=== PATIENT | female | born 1955 | race Caucasian/White ===

== ENCOUNTER → 2016-07-31 | Outpatient (CLI) | payer BC ==
[2016-07-31 09:01] LABS: CHLORIDE,CL 107 mmol/L (98-110); SODIUM,NA 139 mmol/L (136-146)
== END ==
LOC: MW.CHFP 08:22
PROVIDERS: ATTEND Nurse Practitioner Family
DX: Z01.818 Encounter for other preprocedural examination (principal); E78.00 Pure hypercholesterolemia, unspecified
CPT/HCPCS: 36415; 80053; 80061; 82652; 85025

== ENCOUNTER → 2016-08-06 | Outpatient (CLI) | payer BC ==
--- NOTE | 2016-08-06 12:46 | CR ---
EXAMINATION: Two-view chest (PA and Lateral views). HISTORY: Preprocedural examination. FINDINGS: The trachea is midline. The cardiomediastinal silhouette is within normal limits. No pulmonary infil trates, effusions or pneumothorax. Osseous structures appear unremarkable. IMPRESSION: No acute cardiopulmonary process.
== END ==
LOC: MW.CHFP 11:25
PROVIDERS: ATTEND Nurse Practitioner Family
DX: Z01.818 Encounter for other preprocedural examination (principal)
CPT/HCPCS: 71020; 71020-26; 81001

== ENCOUNTER 2017-01-11 10:35 | Day surgery (SDC) | payer BC ==
[~2017-01-11 10:35] MED LIST: Lidocaine 2% 5 ML SDV ONE; Propofol 200 MG/20 ML SDV ONE
--- NOTE | 2017-01-11 11:05 | PCM.PREANE ---
Preanesthetic Assessment - Anesthesia/Transfusion/Family Hx Anesthesia History: Prior Anesthesia Without Reaction Family History of Anesthesia Reaction: No Transfusion History: No Prior Transfusion(s) - Review of Systems General: No Symptoms Pulmonary: No Symptoms Cardiovascular: No Symptoms Gastrointestinal: No Symptoms Other: Reports: None - Physical Assessment NPO Status Date: 01/10/17 O2 Sat by Pulse Oximetry: 97 Respiratory Rate: 16 Vital Signs: Last Vital Signs Temp 35.8 C 01/11/17 10:41 Pulse 71 01/11/17 10:41 Resp 16 01/11/17 10:41 BP 113/68 01/11/17 10:41 Pulse Ox 97 01/11/17 10:41 Height: 1.73 m Weight: 112.491 kg ASA Class: 2 Mental Status: Alert & Oriented x3 Airway Class: Mallampati = 2 Dentition: Reports: Normal Dentition ROM/Head Extension: Full Lungs: Clear to Auscultation, Normal Respiratory Effort Cardiovascular: Regular Rate, Regular Rhythm - Allergies Allergies/Adverse Reactions: Allergies Allergy/AdvReac Type Severity Reaction Status Date / Time No Known Allergies Allergy Verified 10/30/13 08:23 - Anesthesia Plan Pre-Op Medication Ordered: Other (fentanyl) - Acknowledgements Anesthesia Type Planned: MAC Pt an Appropriate Candidate for the Planned Anesthesia: Yes Alternatives and Risks of Anesthesia Discussed w Pt/Guardian: Yes Pt/Guardian Understands and Agrees with Anesthesia Plan: Yes PreAnesthesia Questionnaire HEENT History: Reports: Other (See Below) Other HEENT History: wears glasses Cardiovascular History: Reports: High Cholesterol, Hypertension Respiratory History: Reports: Sleep Apnea Other Respiratory History: uses CPAP Gastrointestinal History: Reports: Other (See Below) Other Gastrointestinal History: currently c/o diarrhea and rectal bleeding Genitourinary History: Other Genitourinary History: pt denies, H&P states chronic renal disease, stage 3 [employer] History: Reports: Neurological History: Reports: Other (See Below) Other Neuro History: "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" Endocrine/Metabolic History: Reports: Hypothyroidism, Obesity/BMI 30+ Hematologic History: Reports: Anemia - Past Surgical History Head Surgeries/Procedures: Reports: None Female Surgical History: Reports: Section, Hysterectomy Neurological Surgical History: Reports: Spinal Fusion Other Neurological Surgeries/Procedures: hx back fusion Musculoskeletal Surgical History: Reports: Hip Replacement Other Musculoskeletal Surgeries/Procedures:: hx left hip replacement - SUBSTANCE USE Smoking Status *Q: Never Smoker Recreational Drug Use History: No - HOME MEDS Home Medications: Home Meds Ezetimibe 10 mg PO BEDTIME 01/08/17 [History] Hydrocodone/Acetaminophen [Hydrocodon-Acetaminophen 5-325] 0.5 tab PO ASDIRECTED PRN 01/08/17 [History] Iron Polysaccharide Complex [Poly-Iron] 150 mg PO BID 01/08/17 [History] Levothyroxine Sodium [Synthroid] 112 mcg PO DAILY 01/08/17 [History] Lisinopril/Hydrochlorothiazide [Lisinopril-Hctz 10-12.5 mg Tab] 1 tab PO DAILY 01/08/17 [History] Meloxicam 15 mg PO DAILY PRN 01/08/17 [History] Vit C/Silvia Ac/Lut/Copper/ZnOx [Preservision Lutein Softgel] 1 tab PO DAILY 01/08 [History] - CURRENT (IN HOUSE) MEDS Current Meds: Current Medications Discontinued Medications Lidocaine (Xylocaine-Mpf 2%) Confirm Administered Dose 5 ml .ROUTE .STK-MED ONE Stop: 01/11/17 07:36 Propofol (Diprivan 20 Ml) Confirm Administered Dose 400 mg .ROUTE .STK-MED ONE Stop: 01/11/17 07:36
[2017-01-11] MEDS: fentaNYL 100 MCG/2 ML SDV IVPUSH PRN ×2 (11:12→11:19)
[2017-01-11] MEDS ORDERED: Propofol 200 MG/20 ML SDV ONE ×3 (11:55→12:27)
--- NOTE | 2017-01-11 12:56 | PCM.OPNOTE ---
- General Post-Op/Procedure Note Date of Surgery/Procedure: 01/11/17 Operative Procedure(s): Esophagogastroduodenoscopy with biopsy. Colonoscopy. Pre Op Diagnosis: Anemia. Change in bowel habits. Rectal bleeding. Post-Op Diagnosis: Gastritis. Pancolonic diverticulosis. Anesthesia Technique: MAC (ASA III) Primary Surgeon: Sarthak Carpenter Condition: Good Free Text/Narrative:: Dictation [id number] CPT CODE [id number]
[2017-01-11] MEDS ORDERED: Lactated Ringers 1,000 ML IV SCH (13:00)
[2017-01-11] MEDS ORDERED: HYDROmorphone 1 MG/ML Syringe IVPUSH ONE (13:02)
[2017-01-11] MEDS ORDERED: HYDROmorphone 2 MG/ML Syringe ONE (13:02)
[2017-01-11] MEDS ORDERED: Acetaminophen/oxyCODONE 325-10 MG Tab PO ONE (13:10)
[2017-01-11] MEDS ORDERED: Acetaminophen/oxyCODONE 325-10 MG Tab ONE (13:12)
--- NOTE | 2017-01-11 13:16 | PCM.POSTAN ---
POST ANESTHESIA ASSESSMENT - MENTAL STATUS Mental Status: Alert, Oriented - RESPIRATORY Respiratory Status: Respiratory Rate WNL, Airway Patent, O2 Saturation Stable - CARDIOVASCULAR CV Status: Pulse Rate WNL, Blood Pressure Stable - GASTROINTESTINAL GI Status: No Symptoms - PAIN Pain Score: 10 Free Text/Narrative:: Patient pulled out IV PO dilaudid given, Hx of chronic pain syndrome - POST OP HYDRATION Hydration Status: Adequate & Stable
[2017-01-11] MEDS ORDERED: Morphine 10 MG/ML Syringe IVPUSH PRN (15:31)
[2017-01-11] MEDS ORDERED: Morphine 2 MG/ML Syringe IVPUSH PRN (15:37)
[2017-01-11 16:07] VITALS: BP 115/62
--- NOTE | 2017-01-11 16:28 | PCM48HPAN ---
Post Anesthesia Note - EVALUATION WITHIN 48HRS OF ANESTHETIC Vital Signs in Normal Range: Yes Patient Participated in Evaluation: Yes Respiratory Function Stable: Yes Airway Patent: Yes Cardiovascular Function Stable: Yes Hydration Status Stable: Yes Pain Control Satisfactory: Yes Nausea and Vomiting Control Satisfactory: Yes Mental Status Recovered: Yes - COMMENTS/OBSERVATIONS Free Text/Narrative:: Pt had significant gas/abdominal cramping post op that made her unable to ambulate even short distances. Pt had flatus but not adequate to relieve the cramping. Pt was eventually treated with IV morphine, which brought her pain level to a "2/10" and she was agreeable to discharge. No other anesthetic complications reported.
--- NOTE | 2017-01-11 19:04 | OR ---
SURGEON: Sarthak Carpenter M.D. DATE OF PROCEDURE: 01/11/2017 OPERATION PERFORMED: Esophagogastroduodenoscopy with biopsy. ANESTHESIA: MAC. ASA CLASSIFICATION: III. PREOPERATIVE DIAGNOSIS: New onset anemia. POSTOPERATIVE DIAGNOSIS: Moderate gastritis. DESCRIPTION OF PROCEDURE: The patient was taken to the endoscopy room and positioned on the endoscopy table in the supine position. Time-out was called for appropriate identification of the patient and procedure. Monitored anesthesia care was provided. The bite-block was placed between the patient's teeth. The gastroscope was inserted through the bite-block, advanced without difficulty through the esophagus and stomach into the duodenum where examination was carried out in a retrograde fashion. Duodenum was somewhat pale in appearance, but shows no acute ulcerations. Stomach shows a [id number] gastritis. Antral biopsies were obtained to look for the presence of Helicobacter pylori. The gastroscope was retroflexed to visualize the proximal stomach. No lesions were identified. Specifically, no ulcers or tumors were seen. The gastroscope was then straightened and slowly withdrawn aspirating the stomach as the scope was withdrawn. The GE junction was well defined and shows no acute inflammatory changes. The esophagus demonstrated good contractility. No mid or proximal lesions were identified. The vocal cords were visualized as the scope was withdrawn and noted to move symmetrically. The gastroscope was then removed with the patient having tolerated this portion of the procedure well. Following colonoscopy she was taken to recovery room in stable condition. MANUEL BROOKS /[id number]
--- NOTE | 2017-01-11 19:13 | OR ---
SURGEON: Sarthak Carpenter M.D. DATE OF PROCEDURE: 01/11/2017 OPERATION PERFORMED: Colonoscopy. ANESTHESIA: MAC. ASA CLASSIFICATION: III. PREOPERATIVE DIAGNOSES: 1. Change in bowel habits. 2. New onset anemia. POSTOPERATIVE DIAGNOSIS: Pancolonic diverticulosis. DESCRIPTION OF PROCEDURE: With the patient having completed esophagogastroduodenoscopy with biopsy, she was now positioned in the left lateral decubitus position. The colonoscope was inserted into the rectum and advanced with great difficulty to the proximal ascending colon visualizing the cecum in the distance. The prep was of poor quality and certainly a small polyp could be missed. As much fecal material could be was aspirated. The patient has pancolonic diverticulosis. The cecum, ascending colon, hepatic flexure, transverse colon, splenic flexure, descending colon, sigmoid colon, and rectum were visualized as well as could be under given the poor quality of the prep. The patient does have diverticular changes scattered throughout the entire length of the colon. I did not see any large polyp or any obstructing neoplasm. Certainly a small polyp could be missed given the quality of the prep. As the colonoscope was withdrawn to the rectum, it was retroflexed to visualize the anal orifice from above. No tumors or polyps were seen and there were no acute hemorrhoidal changes. The colonoscope was then straightened, the rectum aspirated, and the colonoscope removed. The patient tolerated the procedure well and was taken to recovery room in stable condition. MANUEL BROOKS /[id number]
== END 2017-01-11 16:56 | disposition home or self-care (01) ==
LOC: MW.SDS 10:35
PROVIDERS: ATTEND Surgery
DX: K29.50 Unspecified chronic gastritis without bleeding (principal); K57.30 Diverticulosis of large intestine without perforation or abscess without bleeding; D64.9 Anemia, unspecified; I12.9 Hypertensive chronic kidney disease with stage 1 through stage 4 chronic kidney disease, or unspecified chronic kidney disease; N18.3 Chronic kidney disease, stage 3 (moderate); E78.00 Pure hypercholesterolemia, unspecified; E03.9 Hypothyroidism, unspecified; M54.16 Radiculopathy, lumbar region; E66.9 Obesity, unspecified; G47.33 Obstructive sleep apnea (adult) (pediatric); E55.9 Vitamin D deficiency, unspecified; M43.10 Spondylolisthesis, site unspecified; E88.81 Metabolic syndrome and other insulin resistance; Z99.89 Dependence on other enabling machines and devices; Z79.899 Other long term (current) drug therapy; Z98.1 Arthrodesis status; Z96.642 Presence of left artificial hip joint; Z90.710 Acquired absence of both cervix and uterus; Z98.890 Other specified postprocedural states; Z80.0 Family history of malignant neoplasm of digestive organs; Z68.37 Body mass index [BMI] 37.0-37.9, adult
CPT/HCPCS: 43239; 45378; 88305; 88312; A9270; J2270; J3010; 00740; J2704

== ENCOUNTER 2020-05-14 02:47 | Observation (INO) | payer MEDICARE, OTHER ==
[2020-05-14] MEDS ORDERED: Sodium Chloride 0.9% 1,000 ML IV ONE (03:16)
[2020-05-14] MEDS ORDERED: Diltiazem 25 MG/5 ML SDV IVPUSH ONE ×3 (03:17→03:36)
--- NOTE | 2020-05-14 03:21 | EDM.PDOC ---
ED HPI GENERAL MEDICAL PROBLEM - General Chief Complaint: Cardiovascular Problem Stated Complaint: HIGH BLOOD PRESSURE Time Seen by Provider: 05/14/20 03:04 Source of Information: Reports: Patient History Limitations: Reports: No Limitations - History of Present Illness INITIAL COMMENTS - FREE TEXT/NARRATIVE: Patient is a 64-year-old female who presents today for elevated blood pressure and heart rate. Patient states that this evening she is felt funny and he checked her vital signs at home her blood pressure was 160/90 but she notes her heart rate was close to 187 to come in. Patient denies any chest pain palpitation fever chills nausea vomiting or other complaints. Patient does have concerns that she is got the cold vaccine and believes this is causing her heart rate to go fast. Has no rash or any allergic reaction symptoms. - Related Data Allergies Allergy/AdvReac Type Severity Reaction Status Date / Time No Known Allergies Allergy Verified 10/30/13 08:23 Home Meds: Home Meds Ezetimibe 10 mg PO BEDTIME 01/08/17 [History] Levothyroxine Sodium [Synthroid] 112 mcg PO DAILY 01/08/17 [History] Lisinopril/Hydrochlorothiazide [Lisinopril-Hctz 10-12.5 mg Tab] 1 tab PO DAILY 01/08/17 [History] Past Medical History HEENT History: Reports: Other (See Below) Other HEENT History: wears glasses Cardiovascular History: Reports: High Cholesterol, Hypertension Respiratory History: Reports: Sleep Apnea Other Respiratory History: uses CPAP Gastrointestinal History: Reports: Other (See Below) Other Gastrointestinal History: currently c/o diarrhea and rectal bleeding Genitourinary History: Other Genitourinary History: pt denies, H&P states chronic renal disease, stage 3 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" Endocrine/Metabolic History: Reports: Hypothyroidism, Obesity/BMI 30+ Hematologic History: Reports: Anemia - Past Surgical History Head Surgeries/Procedures: Reports: None Female Surgical History: Reports: Section, Hysterectomy Neurological Surgical History: Reports: Spinal Fusion Other Neurological Surgeries/Procedures: hx back fusion Musculoskeletal Surgical History: Reports: Hip Replacement Other Musculoskeletal Surgeries/Procedures:: hx left hip replacement ED ROS GENERAL - Review of Systems Review Of Systems: See Below Constitutional: Reports: No Symptoms HEENT: Reports: No Symptoms Respiratory: Reports: No Symptoms Cardiovascular: Reports: No Symptoms Endocrine: Reports: No Symptoms GI/Abdominal: Reports: No Symptoms : Reports: No Symptoms Musculoskeletal: Reports: No Symptoms Skin: Reports: No Symptoms Neurological: Reports: No Symptoms Psychiatric: Reports: No Symptoms Hematologic/Lymphatic: Reports: No Symptoms Immunologic: Reports: No Symptoms ED EXAM, GENERAL - Physical Exam Exam: See Below Exam Limited By: No Limitations General Appearance: Alert, WD/WN, No Apparent Distress Eye Exam: Bilateral Eye: EOMI, PERRL Head: Atraumatic Respiratory/Chest: No Respiratory Distress, Lungs Clear, Normal Breath Sounds Cardiovascular: Normal Peripheral Pulses, Regular Rate, Rhythm, No Edema GI/Abdominal: Normal Bowel Sounds, Soft, Non-Tender Extremities: Normal Inspection Neurological: Alert, Oriented, Normal Cognition, Normal Gait #1 Interpretation EKG Date: 05/14/20 Time: 03:10 Rhythm: A-Fib Rate (Beats/Min): 154 ST-T: Normal #2 Interpretation EKG Date: 05/14/20 Time: 05:00 Rhythm: NSR Rate (Beats/Min): 74 ST-T: Normal Course - Vital Signs Last Recorded V/S: Last Vital Signs Temp 97.4 F 05/14/20 03:04 Pulse 70 05/14/20 04:32 Resp 18 05/14/20 04:32 BP 118/76 05/14/20 04:32 Pulse Ox 97 05/14/20 04:32 - Orders/Labs/Meds Orders: Active Orders 24 hr Category Date Time Status EKG Documentation Completion [RC] STAT Care 05/14/20 05:11 Active TROPONIN I [CHEM] Stat Lab 05/14/20 06:10 Ordered Labs: Laboratory Tests 05/14/20 05/14/20 05/14/20 Range/Units 03:10 03:10 03:10 WBC 6.38 (4.0-11.0) K/uL RBC 4.50 (4.30-5.90) M/uL Hgb 13.8 (12.0-16.0) g/dL Hct 42.5 (36.0-46.0) % MCV 94.4 (80.0-98.0) fL MCH 30.7 (27.0-32.0) pg MCHC 32.5 (31.0-37.0) g/dL RDW Std Deviation 60.8 (28.0-62.0) fl RDW Coeff of Derrick 18 H (11.0-15.0) % Plt Count 230 (150-400) K/uL MPV 9.70 (7.40-12.00) fL Neut % (Auto) 36.7 L (48.0-80.0) % Lymph % (Auto) 45.5 H (16.0-40.0) % [place] % (Auto) 11.9 (0.0-15.0) % Eos % (Auto) 5.6 (0.0-7.0) % Baso % (Auto) 0.3 (0.0-1.5) % Neut # (Auto) 2.3 (1.4-5.7) K/uL Lymph # (Auto) 2.9 H (0.6-2.4) K/uL [place] # (Auto) 0.8 (0.0-0.8) K/uL Eos # (Auto) 0.4 (0.0-0.7) K/uL Baso # (Auto) 0.0 (0.0-0.1) K/uL Nucleated RBC % 0.0 /100WBC Nucleated RBCs # 0 K/uL Sodium 141 (136-145) mmol/L Potassium 3.8 (3.5-5.1) mmol/L Chloride 105 (98-107) mmol/L Carbon Dioxide 25.8 (21.0-32.0) mmol/L BUN 30 H (7.0-18.0) mg/dL Creatinine 1.2 H (0.6-1.0) mg/dL Est Cr Clr Drug Dosing 46.52 mL/min Estimated GFR (MDRD) 44.9 ml/min Glucose 137 H (74-106) mg/dL Calcium 8.3 L (8.5-10.1) mg/dL Creatine Kinase 78 (26-308) U/L Troponin I < 0.050 (0.000-0.056) ng/mL B-Natriuretic Peptide 56 (<100) PG/ML TSH 3rd Generation 3.59 (0.36-3.74) uIU/mL Influenza Type A RNA (NEGATIVE) Influenza Type B RNA (NEGATIVE) SARS-CoV-2 RNA (SUSAN) (NEGATIVE) 05/14/20 Range/Units 03:55 WBC (4.0-11.0) K/uL RBC (4.30-5.90) M/uL Hgb (12.0-16.0) g/dL Hct (36.0-46.0) % MCV (80.0-98.0) fL MCH (27.0-32.0) pg MCHC (31.0-37.0) g/dL RDW Std Deviation (28.0-62.0) fl RDW Coeff of Derrick (11.0-15.0) % Plt Count (150-400) K/uL MPV (7.40-12.00) fL Neut % (Auto) (48.0-80.0) % Lymph % (Auto) (16.0-40.0) % [place] % (Auto) (0.0-15.0) % Eos % (Auto) (0.0-7.0) % Baso % (Auto) (0.0-1.5) % Neut # (Auto) (1.4-5.7) K/uL Lymph # (Auto) (0.6-2.4) K/uL [place] # (Auto) (0.0-0.8) K/uL Eos # (Auto) (0.0-0.7) K/uL Baso # (Auto) (0.0-0.1) K/uL Nucleated RBC % /100WBC Nucleated RBCs # K/uL Sodium (136-145) mmol/L Potassium (3.5-5.1) mmol/L Chloride (98-107) mmol/L Carbon Dioxide (21.0-32.0) mmol/L BUN (7.0-18.0) mg/dL Creatinine (0.6-1.0) mg/dL Est Cr Clr Drug Dosing mL/min Estimated GFR (MDRD) ml/min Glucose (74-106) mg/dL Calcium (8.5-10.1) mg/dL Creatine Kinase (26-308) U/L Troponin I (0.000-0.056) ng/mL B-Natriuretic Peptide (<100) PG/ML TSH 3rd Generation (0.36-3.74) uIU/mL Influenza Type A RNA NEGATIVE (NEGATIVE) Influenza Type B RNA NEGATIVE (NEGATIVE) SARS-CoV-2 RNA (SUSAN) NEGATIVE (NEGATIVE) Meds: Medications Discontinued Medications Generic Name Dose Route Start Last Admin Trade Name Freq PRN Reason Stop Dose Admin Diltiazem HCl 20 mg 05/14/20 03:17 05/14/20 03:25 Diltiazem IVPUSH 05/14/20 03:18 20 mg ONETIME ONE Administration Diltiazem HCl 20 mg 05/14/20 03:36 05/14/20 03:57 Diltiazem IVPUSH 05/14/20 03:37 Not Given ONETIME ONE Diltiazem HCl 25 mg 05/14/20 03:36 05/14/20 03:57 Diltiazem IVPUSH 05/14/20 03:37 Not Given ONETIME ONE Diltiazem HCl 60 mg 05/14/20 03:37 05/14/20 04:10 Cardizem PO 05/14/20 03:38 60 mg ONETIME ONE Administration Sodium Chloride 1,000 mls @ 999 mls/hr 05/14/20 03:16 05/14/20 03:23 Normal Saline IV 05/14/20 04:16 999 mls/hr .BOLUS ONE Administration - Re-Assessments/Exams Free Text/Narrative Re-Assessment/Exam: 05/14/20 04:18 Patient heart rate is back in sinus rhythm after receiving 20 mg of IV diltiazem. Patient was was given p.o. diltiazem. Patient will be admitted to the hospital pending second troponin. Departure - Departure Time of Disposition: 04:18 Disposition: Admitted As Inpatient 64 Condition: Good Clinical Impression: A-fib Referrals: Christiano Bowden MD [Primary Care Provider] - Forms: ED Department Discharge Critical Care Note - Critical Care Note Total Time (mins): 40 Comments: Critical Care Procedure Note Authorized and Performed by: Dr. Sevilla Total critical care time: Approximately Due to a high probability of clinically significant, life threatening deterioration, the patient required my highest level of preparedness to intervene emergently and I personally spent this critical care time directly and personally managing the patient. This critical care time included obtaining a history; examining the patient; pulse oximetry; ordering and review of studies; arranging urgent treatment with development of a management plan; evaluation of patient's response to treatment; frequent reassessment; and, discussions with other providers. This critical care time was performed to assess and manage the high probability of imminent, life-threatening deterioration that could result in multi-organ failure. It was exclusive of separately billable procedures and treating other patients and teaching time. Sepsis Event Note (ED) - Evaluation Sepsis Screening Result: No Definite Risk - Focused Exam Vital Signs: Vital Signs Temp Pulse Resp BP Pulse Ox 05/14/20 04:32 70 18 118/76 97 05/14/20 03:58 98 18 149/116 H 100 05/14/20 03:26 140 H 18 147/102 H 92 L 05/14/20 03:04 97.4 F 145 H 18 147/102 H 99 - My Orders Last 24 Hours: My Active Orders 05/14/20 05:11 EKG Documentation Completion [RC] STAT 05/14/20 06:10 TROPONIN I [CHEM] Stat - Assessment/Plan Last 24 Hours: My Active Orders 05/14/20 05:11 EKG Documentation Completion [RC] STAT 05/14/20 06:10 TROPONIN I [CHEM] Stat Assessment:: Patient is a 64-year-old female who presents today for elevated blood pressure and heart rate. Patient was found to be in atrial fibrillation but is asymptomatic currently. X-ray labs EKG and give diltiazem.
[2020-05-14] MEDS ORDERED: Diltiazem IR 60 MG Tab PO ONE ×3 (03:37→19:00)
[2020-05-14 03:44] LABS: BLOOD UREA NITROGEN,BUN 30 mg/dL (7.0-18.0); CARBON DIOXIDE,CO2 25.8 mmol/L (21.0-32.0); CHLORIDE,CL 105 mmol/L (98-107); GLUCOSE RANDOM 137 mg/dL (74-106); POTASSIUM,K 3.8 mmol/L (3.5-5.1); SODIUM,NA 141 mmol/L (136-145)
--- NOTE | 2020-05-14 04:38 | CR ---
Indication: A-Fib Technique: Chest 1 view Comparison: None Findings/Impression: Cardiovascular and mediastinum: Unremarkable cardiac silhouette for a portable technique. An unfolded aorta. Lungs and pleural space: Lungs are clear. No sign of infiltrate or mass. No sign of pleural effusion. No pneumothorax. Bones and soft tissues: Degenerative changes at the glenohumeral joints. Dictated by Jesu Valderrama MD @ May 14 2020 4:32AM Signed by Dr. Jesu Valderrama @ May 14 2020 4:37AM
[2020-05-14 04:50] LABS: CORONAVIRUS COVID-19 NAA NEGATIVE (NEGATIVE); INFLUENZA A NAA NEGATIVE (NEGATIVE); INFLUENZA B NAA NEGATIVE (NEGATIVE)
[2020-05-14] MEDS ORDERED: Acetaminophen 325 MG Tab PO PRN (07:58)
[2020-05-14] MEDS ORDERED: Lactated Ringers 1,000 ML IV SCH (08:00)
[2020-05-14] MEDS ORDERED: Diltiazem 25 MG/5 ML SDV IVPUSH PRN (08:00)
[2020-05-14] MEDS ORDERED: Heparin Sodium 5,000 Units/ML Vial SUBCUT SCH (09:00)
--- NOTE | 2020-05-14 09:16 | PCM.HP.2 ---
<Nhi Juares - Last Filed: 05/14/20 13:44> H&P History of Present Illness - General Date of Service: 05/14/20 Admit Problem/Dx: Admission Diagnosis/Problem Admission Diagnosis/Problem Afib, Atrial fibrillation Source of Information: Patient History Limitations: Reports: No Limitations - History of Present Illness Initial Comments - Free Text/Narative: Patient is a 64-year-old female with a significant past medical history of hypothyroidism, hypertension and hypercholesterolemia; presenting to the ED on May 14, 2020 for 24 hours of chest discomfort/racing heart sensation with palpitations. Patient endorsed having her Covid shot on and feeling ill that night however overnight she was also experiencing some racing heart sensation and elevated blood pressure. BP at home was greater than 160 and patient endorsed her blood pressure normally runs in the 110s to 120s. Patient otherwise denied any overt chest pain, shortness of breath, headaches, diaphoresis. When she noticed that her heart rate is greater than 180 she presented to the ED via private vehicle. ED course: EKG: A. fib with RVR of 145 Diltiazem 20 mg x 3 given for rate control. Once rate controlled Dilts 60 p.o. provided. Sodium chloride 1 L IV fluid Troponin x1 - Chest x-ray unremarkable: Bedside: Patient endorses no acute distress at this time. Says the sensation in her chest has resolved. Endorses similar story as above. - Related Data Allergies/Adverse Reactions: Allergies Allergy/AdvReac Type Severity Reaction Status Date / Time No Known Allergies Allergy Verified 05/14/20 08:10 Home Medications: Home Meds Ezetimibe 10 mg PO BEDTIME 01/08/17 [History] Levothyroxine Sodium [Synthroid] 112 mcg PO BEDTIME 01/08/17 [History] Lisinopril/Hydrochlorothiazide [Lisinopril-Hctz 10-12.5 mg Tab] 1 tab PO BEDTIME 01/08/17 [History] Acetaminophen [Tylenol] 650 mg PO Q6H PRN tablet 05/14/20 [Rx] Diltiazem [Dilacor XR] 120 mg PO DAILY 30 Days #30 cap.er 05/14/20 [Rx] Warfarin [Coumadin] 7.5 mg PO DAILY 14 Days #14 tablet 05/14/20 [Rx] Past Medical History HEENT History: Reports: Other (See Below) Other HEENT History: wears glasses Cardiovascular History: Reports: High Cholesterol, Hypertension Respiratory History: Reports: Sleep Apnea Other Respiratory History: uses CPAP Gastrointestinal History: Reports: Other (See Below) Other Gastrointestinal History: currently c/o diarrhea and rectal bleeding Genitourinary History: Other Genitourinary History: pt denies, H&P states chronic renal disease, stage 3 [employer] History: Reports: Musculoskeletal History: Reports: Arthritis Neurological History: Reports: Other (See Below) Other Neuro History: "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" Endocrine/Metabolic History: Reports: Hypothyroidism, Obesity/BMI 30+ Hematologic History: Reports: Anemia - Infectious Disease History Infectious Disease History: Reports: Chicken Pox, Measles, Mumps - Past Surgical History Head Surgeries/Procedures: Reports: None Female Surgical History: Reports: Section, Hysterectomy Neurological Surgical History: Reports: Spinal Fusion Other Neurological Surgeries/Procedures: hx back fusion Musculoskeletal Surgical History: Reports: Hip Replacement, Knee Replacement Other Musculoskeletal Surgeries/Procedures:: hx left hip replacement, left knee, both hips Social & Family History - Tobacco Use Tobacco Use Status *Q: Never Tobacco User Second Hand Smoke Exposure: No - Caffeine Use Caffeine Use: Reports: Coffee, Tea - Recreational Drug Use Recreational Drug Use: No H&P Review of Systems - Review of Systems: Review Of Systems: See Below General: Reports: No Symptoms HEENT: Reports: No Symptoms Pulmonary: Reports: No Symptoms Cardiovascular: Reports: No Symptoms Gastrointestinal: Reports: No Symptoms Genitourinary: Reports: No Symptoms Musculoskeletal: Reports: No Symptoms Psychiatric: Reports: No Symptoms Neurological: Reports: No Symptoms Exam - Exam Exam: See Below - Vital Signs Vital Signs: Last Vital Signs Temp 96.5 F L 05/14/20 07:56 Pulse 65 05/14/20 07:56 Resp 14 05/14/20 07:56 BP 122/78 05/14/20 07:56 Pulse Ox 99 05/14/20 07:56 Weight: 118.614 kg - Exam Quality Assessment: No: Supplemental Oxygen General: Alert, Oriented, Cooperative HEENT: EOMI, Hearing Intact Neck: Supple, Trachea Midline Lungs: Clear to Auscultation, Normal Respiratory Effort Cardiovascular: Regular Rate, Regular Rhythm GI/Abdominal Exam: Soft, Non-Tender - Patient Data Lab Results Last 24 hrs: Laboratory Results - last 24 hr 05/14/20 05/14/20 05/14/20 Range/Units 03:10 03:10 03:10 WBC 6.38 (4.0-11.0) K/uL RBC 4.50 (4.30-5.90) M/uL Hgb 13.8 (12.0-16.0) g/dL Hct 42.5 (36.0-46.0) % MCV 94.4 (80.0-98.0) fL MCH 30.7 (27.0-32.0) pg MCHC 32.5 (31.0-37.0) g/dL RDW Std Deviation 60.8 (28.0-62.0) fl RDW Coeff of Derrick 18 H (11.0-15.0) % Plt Count 230 (150-400) K/uL MPV 9.70 (7.40-12.00) fL Neut % (Auto) 36.7 L (48.0-80.0) % Lymph % (Auto) 45.5 H (16.0-40.0) % Desha % (Auto) 11.9 (0.0-15.0) % Eos % (Auto) 5.6 (0.0-7.0) % Baso % (Auto) 0.3 (0.0-1.5) % Neut # (Auto) 2.3 (1.4-5.7) K/uL Lymph # (Auto) 2.9 H (0.6-2.4) K/uL Desha # (Auto) 0.8 (0.0-0.8) K/uL Eos # (Auto) 0.4 (0.0-0.7) K/uL Baso # (Auto) 0.0 (0.0-0.1) K/uL Nucleated RBC % 0.0 /100WBC Nucleated RBCs # 0 K/uL Sodium 141 (136-145) mmol/L Potassium 3.8 (3.5-5.1) mmol/L Chloride 105 (98-107) mmol/L Carbon Dioxide 25.8 (21.0-32.0) mmol/L BUN 30 H (7.0-18.0) mg/dL Creatinine 1.2 H (0.6-1.0) mg/dL Est Cr Clr Drug Dosing 46.52 mL/min Estimated GFR (MDRD) 44.9 ml/min Glucose 137 H (74-106) mg/dL Calcium 8.3 L (8.5-10.1) mg/dL Creatine Kinase 78 (26-308) U/L Troponin I < 0.050 (0.000-0.056) ng/mL B-Natriuretic Peptide 56 (<100) PG/ML TSH 3rd Generation 3.59 (0.36-3.74) uIU/mL Influenza Type A RNA (NEGATIVE) Influenza Type B RNA (NEGATIVE) SARS-CoV-2 RNA (SUSAN) (NEGATIVE) 05/14/20 05/14/20 Range/Units 03:55 06:13 WBC (4.0-11.0) K/uL RBC (4.30-5.90) M/uL Hgb (12.0-16.0) g/dL Hct (36.0-46.0) % MCV (80.0-98.0) fL MCH (27.0-32.0) pg MCHC (31.0-37.0) g/dL RDW Std Deviation (28.0-62.0) fl RDW Coeff of Derrick (11.0-15.0) % Plt Count (150-400) K/uL MPV (7.40-12.00) fL Neut % (Auto) (48.0-80.0) % Lymph % (Auto) (16.0-40.0) % Desha % (Auto) (0.0-15.0) % Eos % (Auto) (0.0-7.0) % Baso % (Auto) (0.0-1.5) % Neut # (Auto) (1.4-5.7) K/uL Lymph # (Auto) (0.6-2.4) K/uL Desha # (Auto) (0.0-0.8) K/uL Eos # (Auto) (0.0-0.7) K/uL Baso # (Auto) (0.0-0.1) K/uL Nucleated RBC % /100WBC Nucleated RBCs # K/uL Sodium (136-145) mmol/L Potassium (3.5-5.1) mmol/L Chloride (98-107) mmol/L Carbon Dioxide (21.0-32.0) mmol/L BUN (7.0-18.0) mg/dL Creatinine (0.6-1.0) mg/dL Est Cr Clr Drug Dosing mL/min Estimated GFR (MDRD) ml/min Glucose (74-106) mg/dL Calcium (8.5-10.1) mg/dL Creatine Kinase (26-308) U/L Troponin I < 0.050 (0.000-0.056) ng/mL B-Natriuretic Peptide (<100) PG/ML TSH 3rd Generation (0.36-3.74) uIU/mL Influenza Type A RNA NEGATIVE (NEGATIVE) Influenza Type B RNA NEGATIVE (NEGATIVE) SARS-CoV-2 RNA (SUSAN) NEGATIVE (NEGATIVE) Result Diagrams: 05/14/20 03:10 05/14/20 03:10 Sepsis Event Note - Evaluation Sepsis Screening Result: No Definite Risk - Focused Exam Vital Signs: Vital Signs Temp Pulse Resp BP Pulse Ox 05/14/20 07:56 96.5 F L 65 14 122/78 99 05/14/20 07:45 65 16 111/71 97 05/14/20 06:45 66 16 102/67 98 05/14/20 05:34 71 18 136/83 98 05/14/20 04:32 70 18 118/76 97 05/14/20 03:58 98 18 149/116 H 100 05/14/20 03:26 140 H 18 147/102 H 92 L 05/14/20 03:04 97.4 F 145 H 18 147/102 H 99 - Problem List (1) A-fib SNOMED Code(s): 31554820 ICD Code: I48.91 - UNSPECIFIED ATRIAL FIBRILLATION Status: Acute Current Visit: Yes Problem List Initiated/Reviewed/Updated: Yes Orders Last 24hrs: Active Orders 24 hr Category Date Time Status Patient Status [ADT] Routine ADT 05/14/20 06:20 Active Antiembolic Devices [RC] PER UNIT ROUTINE Care 05/14/20 08:01 Active Influenza Vaccine Charge [RC] .DISCHARGE Care 05/14/20 08:02 Active Oxygen Therapy [RC] ASDIRECTED Care 05/14/20 08:01 Active Oxygen Therapy [RC] PRN Care 05/14/20 08:46 Active Telemetry Monitoring [Cardiac Monitoring] [RC] Care 05/14/20 06:36 Active ASDIRECTED Up ad Dex [RC] ASDIRECTED Care 05/14/20 08:46 Active VTE/DVT Education [RC] PER UNIT ROUTINE Care 05/14/20 08:46 Active Vital Signs [RC] Q4H Care 05/14/20 08:01 Active Vital Signs [RC] Q4H Care 05/14/20 08:46 Active Heart Healthy Diet [DIET] Diet 05/14/20 Breakfast Active Acetaminophen [TylenoL] Med 05/14/20 07:58 Active 650 mg PO Q6H PRN Diltiazem Med 05/14/20 08:00 Active 20 mg IVPUSH Q4HR PRN Diltiazem IR [Cardizem] Med 05/14/20 19:00 Once 60 mg PO ONETIME ONE Diltiazem [Cardizem CD] Med 05/15/20 09:00 Active 120 mg PO DAILY Ezetimibe [Zetia] Med 05/14/20 21:00 Ordered 10 mg PO BEDTIME FLU Vacc [id number](65YR UP)/PF [Fluzone High-Dose Quad Med 05/14/20 21:00 Once ] 240 mcg IM .ONCE ONE Heparin Sodium Med 05/14/20 09:00 Active 5,000 units SUBCUT Q8H Lactated Ringers [Ringers, Lactated] 1,000 ml Med 05/14/20 08:00 Active IV Q10H Levothyroxine Med 05/14/20 21:00 Ordered 112 mcg PO BEDTIME Lisinopril/Hydrochlorothiazide [Lisinopril-HCTZ 10-12.5 Med 05/14/20 21:00 Ordered MG] 1 tab PO BEDTIME Pharmacy to Dose - InFluenza V [Pharmacy to Dose - Med 05/14/20 21:00 Once InFluenza Vaccine] 1 each IM ONETIME ONE SCD [Sequential Compression Device] [OM.PC] Routine Oth 05/14/20 08:01 Ordered Resuscitation Status Routine Resus Stat 05/14/20 08:46 Ordered Medication Orders Acetaminophen (Tylenol) 650 mg PO Q6H PRN PRN Reason: Pain/Fever Diltiazem HCl (Diltiazem) 20 mg IVPUSH Q4HR PRN PRN Reason: HR ABOVE 120 Diltiazem HCl (Cardizem) 60 mg PO ONETIME ONE Stop: 05/14/20 19:01 Diltiazem HCl (Cardizem Cd) 120 mg PO DAILY [facility] Ezetimibe (Zetia) 10 mg PO BEDTIME [facility] Lisinopril/HCTZ (Lisinopril-Hctz 10-12.5 Mg) 1 tab PO BEDTIME [facility] Heparin Sodium (Porcine) (Heparin Sodium) 5,000 units SUBCUT Q8H [facility] Lactated Ringer's (Ringers, Lactated) 1,000 mls @ 100 mls/hr IV Q10H [facility] Influenza Virus Vaccine (Pharmacy To Dose - Influenza Vaccine) 1 each IM ONETIME ONE Stop: 05/14/20 21:01 Influenza Virus Vaccine (Fluzone High-Dose Quad ) 240 mcg IM .ONCE ONE Stop: 05/14/20 21:01 Levothyroxine Sodium (Levothyroxine) 112 mcg PO BEDTIME [facility] Assessment/Plan Comment:: Assessment: 1. New onset atrial fibrillation 2. CHAS 3. Past medical history: Hypothyroidism, hyperlipidemia, hypertension Plan. Admit to observation. Full code. I's and O's per routine. Vitals per routine. Up ad dex. Telemetry 1. New onset atrial fibrillation: Patient has been in sinus rhythm since discharge from the ED. [id number] score: 3 HAS-BLED: 2 (HTN/age) Patient will benefit from anticoagulation on discharge; can consider either warfarin versus DOAC Pt endorses NO rectal bleeding, hemorrhage and or recent surgery at bedside Currently rate controlled on diltiazem; may consider 120 mg CD daily for rate control Patient will require an outpatient echocardiogram and cardiology referral 2. CHAS: continue to monitor. Encourage PO fluid intake. Avoid nephrotoxins 3. Hypothyroidism; TSH within normal limits; continue home medications . Hypertension/hyperlipidemia: Continue home medications; endorses history of statin intolerance; continue Ezeitmibe Discharge Summary : pt ultimately returned to sinus rhythm after IV/PO doses of diltiazem. Chest discomfort resolved and pt was asymptomatic. pt otherwise requested to go home. Discussed need for Echocardiogram and a zio-patch outpatient . pt understood and agreed Will write script for outpatient repeat INR check on 05-18 with follow up with PCP on same day; can adjust INR on that day and will have a outpatient coagulation clinic follow up on Saturday05-23-2020 pt sent home with Warfarin 7.5 mg daily sent home with Diltazem ER 120 daily x 30 days zio/echo outpatient follow up with PCP on following week. Advised to Return to ED PRN if symptoms return. pt understood and agreed. <Luisa Dorsey - Last Filed: 05/14/20 14:36> H&P History of Present Illness - General Admit Problem/Dx: Admission Diagnosis/Problem Admission Diagnosis/Problem Afib, Atrial fibrillation Exam - Vital Signs Vital Signs: Last Vital Signs Temp 36.2 C 05/14/20 12:26 Pulse 62 05/14/20 12:26 Resp 15 05/14/20 12:26 BP 143/85 H 05/14/20 12:26 Pulse Ox 98 05/14/20 12:26 - Patient Data Lab Results Last 24 hrs: Laboratory Results - last 24 hr 05/14/20 05/14/20 05/14/20 Range/Units 03:10 03:10 03:10 WBC 6.38 (4.0-11.0) K/uL RBC 4.50 (4.30-5.90) M/uL Hgb 13.8 (12.0-16.0) g/dL Hct 42.5 (36.0-46.0) % MCV 94.4 (80.0-98.0) fL MCH 30.7 (27.0-32.0) pg MCHC 32.5 (31.0-37.0) g/dL RDW Std Deviation 60.8 (28.0-62.0) fl RDW Coeff of Derrick 18 H (11.0-15.0) % Plt Count 230 (150-400) K/uL MPV 9.70 (7.40-12.00) fL Neut % (Auto) 36.7 L (48.0-80.0) % Lymph % (Auto) 45.5 H (16.0-40.0) % Desha % (Auto) 11.9 (0.0-15.0) % Eos % (Auto) 5.6 (0.0-7.0) % Baso % (Auto) 0.3 (0.0-1.5) % Neut # (Auto) 2.3 (1.4-5.7) K/uL Lymph # (Auto) 2.9 H (0.6-2.4) K/uL Desha # (Auto) 0.8 (0.0-0.8) K/uL Eos # (Auto) 0.4 (0.0-0.7) K/uL Baso # (Auto) 0.0 (0.0-0.1) K/uL Nucleated RBC % 0.0 /100WBC Nucleated RBCs # 0 K/uL INR Sodium 141 (136-145) mmol/L Potassium 3.8 (3.5-5.1) mmol/L Chloride 105 (98-107) mmol/L Carbon Dioxide 25.8 (21.0-32.0) mmol/L BUN 30 H (7.0-18.0) mg/dL Creatinine 1.2 H (0.6-1.0) mg/dL Est Cr Clr Drug Dosing 46.52 mL/min Estimated GFR (MDRD) 44.9 ml/min Glucose 137 H (74-106) mg/dL Calcium 8.3 L (8.5-10.1) mg/dL Creatine Kinase 78 (26-308) U/L Troponin I < 0.050 (0.000-0.056) ng/mL B-Natriuretic Peptide 56 (<100) PG/ML TSH 3rd Generation 3.59 (0.36-3.74) uIU/mL Influenza Type A RNA (NEGATIVE) Influenza Type B RNA (NEGATIVE) SARS-CoV-2 RNA (SUSAN) (NEGATIVE) 05/14/20 05/14/20 05/14/20 Range/Units 03:55 06:13 10:21 WBC (4.0-11.0) K/uL RBC (4.30-5.90) M/uL Hgb (12.0-16.0) g/dL Hct (36.0-46.0) % MCV (80.0-98.0) fL MCH (27.0-32.0) pg MCHC (31.0-37.0) g/dL RDW Std Deviation (28.0-62.0) fl RDW Coeff of Derrick (11.0-15.0) % Plt Count (150-400) K/uL MPV (7.40-12.00) fL Neut % (Auto) (48.0-80.0) % Lymph % (Auto) (16.0-40.0) % Desha % (Auto) (0.0-15.0) % Eos % (Auto) (0.0-7.0) % Baso % (Auto) (0.0-1.5) % Neut # (Auto) (1.4-5.7) K/uL Lymph # (Auto) (0.6-2.4) K/uL Desha # (Auto) (0.0-0.8) K/uL Eos # (Auto) (0.0-0.7) K/uL Baso # (Auto) (0.0-0.1) K/uL Nucleated RBC % /100WBC Nucleated RBCs # K/uL INR Sodium (136-145) mmol/L Potassium (3.5-5.1) mmol/L Chloride (98-107) mmol/L Carbon Dioxide (21.0-32.0) mmol/L BUN (7.0-18.0) mg/dL Creatinine (0.6-1.0) mg/dL Est Cr Clr Drug Dosing mL/min Estimated GFR (MDRD) ml/min Glucose (74-106) mg/dL Calcium (8.5-10.1) mg/dL Creatine Kinase (26-308) U/L Troponin I < 0.050 < 0.050 (0.000-0.056) ng/mL B-Natriuretic Peptide (<100) PG/ML TSH 3rd Generation (0.36-3.74) uIU/mL Influenza Type A RNA NEGATIVE (NEGATIVE) Influenza Type B RNA NEGATIVE (NEGATIVE) SARS-CoV-2 RNA (SUSAN) NEGATIVE (NEGATIVE) 05/14/20 Range/Units 13:08 WBC (4.0-11.0) K/uL RBC (4.30-5.90) M/uL Hgb (12.0-16.0) g/dL Hct (36.0-46.0) % MCV (80.0-98.0) fL MCH (27.0-32.0) pg MCHC (31.0-37.0) g/dL RDW Std Deviation (28.0-62.0) fl RDW Coeff of Derrcik (11.0-15.0) % Plt Count (150-400) K/uL MPV (7.40-12.00) fL Neut % (Auto) (48.0-80.0) % Lymph % (Auto) (16.0-40.0) % Desha % (Auto) (0.0-15.0) % Eos % (Auto) (0.0-7.0) % Baso % (Auto) (0.0-1.5) % Neut # (Auto) (1.4-5.7) K/uL Lymph # (Auto) (0.6-2.4) K/uL Desha # (Auto) (0.0-0.8) K/uL Eos # (Auto) (0.0-0.7) K/uL Baso # (Auto) (0.0-0.1) K/uL Nucleated RBC % /100WBC Nucleated RBCs # K/uL INR 1.02 Sodium (136-145) mmol/L Potassium (3.5-5.1) mmol/L Chloride (98-107) mmol/L Carbon Dioxide (21.0-32.0) mmol/L BUN (7.0-18.0) mg/dL Creatinine (0.6-1.0) mg/dL Est Cr Clr Drug Dosing mL/min Estimated GFR (MDRD) ml/min Glucose (74-106) mg/dL Calcium (8.5-10.1) mg/dL Creatine Kinase (26-308) U/L Troponin I (0.000-0.056) ng/mL B-Natriuretic Peptide (<100) PG/ML TSH 3rd Generation (0.36-3.74) uIU/mL Influenza Type A RNA (NEGATIVE) Influenza Type B RNA (NEGATIVE) SARS-CoV-2 RNA (SUSAN) (NEGATIVE) Result Diagrams: 05/14/20 03:10 05/14/20 03:10 Sepsis Event Note - Focused Exam Vital Signs: Vital Signs Temp Pulse Resp BP Pulse Ox 05/14/20 12:26 36.2 C 62 15 143/85 H 98 05/14/20 07:56 35.8 C L 65 14 122/78 99 05/14/20 07:45 65 16 111/71 97 05/14/20 06:45 66 16 102/67 98 05/14/20 05:34 71 18 136/83 98 05/14/20 04:32 70 18 118/76 97 05/14/20 03:58 98 18 149/116 H 100 05/14/20 03:26 140 H 18 147/102 H 92 L 05/14/20 03:04 36.3 C 145 H 18 147/102 H 99 Orders Last 24hrs: Active Orders 24 hr Category Date Time Status Patient Status [ADT] Routine ADT 05/14/20 06:20 Active Antiembolic Devices [RC] PER UNIT ROUTINE Care 05/14/20 08:01 Active Influenza Vaccine Charge [RC] .DISCHARGE Care 05/14/20 08:02 Active Oxygen Therapy [RC] ASDIRECTED Care 05/14/20 08:01 Active Oxygen Therapy [RC] PRN Care 05/14/20 08:46 Active Ready for Discharge [RC] PER UNIT ROUTINE Care 05/14/20 13:43 Active Telemetry Monitoring [Cardiac Monitoring] [RC] Q8H Care 05/14/20 06:36 Active Up ad Dex [RC] ASDIRECTED Care 05/14/20 08:46 Active VTE/DVT Education [RC] PER UNIT ROUTINE Care 05/14/20 08:46 Active Vital Signs [RC] Q4H Care 05/14/20 08:46 Active Heart Healthy Diet [DIET] Diet 05/14/20 Breakfast Active MAGNESIUM [CHEM] Routine Lab 05/14/20 10:21 Received PHOSPHORUS [CHEM] Routine Lab 05/14/20 10:21 Received Acetaminophen [TylenoL] Med 05/14/20 07:58 Active 650 mg PO Q6H PRN Diltiazem Med 05/14/20 08:00 Active 20 mg IVPUSH Q4HR PRN Diltiazem IR [Cardizem] Med 05/14/20 19:00 Once 60 mg PO ONETIME ONE Diltiazem [Cardizem CD] Med 05/15/20 09:00 Active 120 mg PO DAILY Ezetimibe [Zetia] Med 05/14/20 21:00 Active 10 mg PO BEDTIME FLU Vacc [id number](65YR UP)/PF [Fluzone High-Dose Quad Med 05/14/20 21:00 Once ] 240 mcg IM .ONCE ONE Heparin Sodium Med 05/14/20 09:00 Active 5,000 units SUBCUT Q8H Lactated Ringers [Ringers, Lactated] 1,000 ml Med 05/14/20 08:00 Active IV Q10H Levothyroxine Med 05/14/20 22:00 Active 112 mcg PO DAILY@2200 Lisinopril/Hydrochlorothiazide [Lisinopril-HCTZ 10-12.5 Med 05/14/20 21:00 Active MG] 1 tab PO BEDTIME Pharmacy to Dose - InFluenza V [Pharmacy to Dose - Med 05/14/20 21:00 Once InFluenza Vaccine] 1 each IM ONETIME ONE Warfarin Dosing [Coumadin Ask] Med 05/14/20 14:00 Active 1 each PO DAILY@1400 Warfarin [Coumadin] Med 05/14/20 14:00 Active 7.5 mg PO DAILY@1400 SCD [Sequential Compression Device] [OM.PC] Routine Oth 05/14/20 08:01 Ordered Resuscitation Status Routine Resus Stat 05/14/20 08:46 Ordered Medication Orders Acetaminophen (Tylenol) 650 mg PO Q6H PRN PRN Reason: Pain/Fever Diltiazem HCl (Diltiazem) 20 mg IVPUSH Q4HR PRN PRN Reason: HR ABOVE 120 Diltiazem HCl (Cardizem) 60 mg PO ONETIME ONE Stop: 05/14/20 19:01 Diltiazem HCl (Cardizem Cd) 120 mg PO DAILY [facility] Ezetimibe (Zetia) 10 mg PO BEDTIME [facility] Lisinopril/HCTZ (Lisinopril-Hctz 10-12.5 Mg) 1 tab PO BEDTIME [facility] Heparin Sodium (Porcine) (Heparin Sodium) 5,000 units SUBCUT Q8H [facility] Last Admin: 05/14/20 09:37 Dose: 5,000 units Documented by: NYDIA Lactated Ringer's (Ringers, Lactated) 1,000 mls @ 100 mls/hr IV Q10H [facility] Last Admin: 05/14/20 09:35 Dose: 100 mls/hr Documented by: NYDIA Influenza Virus Vaccine (Pharmacy To Dose - Influenza Vaccine) 1 each IM ONETIME ONE Stop: 05/14/20 21:01 Influenza Virus Vaccine (Fluzone High-Dose Quad ) 240 mcg IM .ONCE ONE Stop: 05/14/20 21:01 Levothyroxine Sodium (Levothyroxine) 112 mcg PO DAILY@2200 [facility] Warfarin Sodium (Coumadin Ask) 1 each PO DAILY@1400 [facility] Last Admin: 05/14/20 13:57 Dose: Not Given Documented by: NYDIA Warfarin Sodium (Coumadin) 7.5 mg PO DAILY@1400 [facility] Stop: 05/14/20 15:00 Last Admin: 05/14/20 13:57 Dose: 7.5 mg Documented by: NYDIA Assessment/Plan Comment:: I performed a history and physical exam of the patient and discussed management with resident. I have reviewed the residents note and agree with documented find ings and plan unless otherwise specified in my note.
[2020-05-14] MEDS ORDERED: Levothyroxine 112 MCG Tab PO SCH ×2 (11:00→22:00)
[2020-05-14 12:36] VITALS: BP 143/85; PULSE 62
[2020-05-14] MEDS ORDERED: Warfarin 2.5 MG Tab PO SCH (14:00)
[2020-05-14] MEDS ORDERED: Lisinopril/Hydrochlorothiazide 10-12.5 MG Tab PO SCH (21:00)
[2020-05-14] MEDS ORDERED: Ezetimibe 10 MG Tab PO SCH (21:00)
[2020-05-14] MEDS ORDERED: FLU Vacc QV2020-21(65YR UP)/PF 240 MCG/0.7 ML Syringe IM ONE (21:00)
[2020-05-15] MEDS ORDERED: Diltiazem 120 MG Cap.CD PO SCH (09:00)
== END 2020-05-14 15:30 | disposition home or self-care (01) ==
LOC: MW.ED 02:47 → MW.MS 06:20
PROVIDERS: ADMIT Student in an Organized Health Care Education/Training Program; ATTEND Student in an Organized Health Care Education/Training Program
DX: I48.91 Unspecified atrial fibrillation (principal); E03.9 Hypothyroidism, unspecified; E78.00 Pure hypercholesterolemia, unspecified; I12.9 Hypertensive chronic kidney disease with stage 1 through stage 4 chronic kidney disease, or unspecified chronic kidney disease; N18.30 Chronic kidney disease, stage 3 unspecified; E66.9 Obesity, unspecified; N17.9 Acute kidney failure, unspecified; E78.5 Hyperlipidemia, unspecified; Z20.822 Contact with and (suspected) exposure to COVID-19; Z79.899 Other long term (current) drug therapy; Z79.01 Long term (current) use of anticoagulants; Z79.890 Hormone replacement therapy; Z98.890 Other specified postprocedural states; Z20.828 Contact with and (suspected) exposure to other viral communicable diseases; Z68.36 Body mass index [BMI] 36.0-36.9, adult
CPT/HCPCS: 0240U; 36415; 71045; 71045-26; 80048; 82550; 83735; 83880; 84100; 84443; 84484; 85025; 85610; 93005; 93010; 96372; 96374; 99234; 99291; A9270-GY; G0378; J1644; J3490; J7030; J7120

== ENCOUNTER 2021-04-20 19:40 | Inpatient (IN) | payer MEDICARE, OTHER ==
[2021-04-20] MEDS ORDERED: Sodium Chloride 0.9% 10 ML Syringe FLUSH PRN (20:19)
[2021-04-20] MEDS ORDERED: Sodium Chloride 0.9% 2.5 ML Syringe FLUSH PRN (20:19)
[2021-04-20 21:08] LABS: BLOOD UREA NITROGEN,BUN 29 mg/dL (7.0-18.0); CARBON DIOXIDE,CO2 21.3 mmol/L (21.0-32.0); CHLORIDE,CL 100 mmol/L (98-107); GLUCOSE RANDOM 161 mg/dL (74-106); LIPASE 73 U/L (73-393); POTASSIUM,K 4.4 mmol/L (3.5-5.1); SODIUM,NA 133 mmol/L (136-145)
[2021-04-20] MEDS ORDERED: Phytonadione 10 MG in Sodium Chloride 0.9% 50 ML IV ONE (21:12)
[2021-04-20] MEDS: Sodium Chloride 0.9% 1,000 ML IV ONE (21:50)
[2021-04-20 22:36] LABS: CORONAVIRUS COVID-19 NAA NEGATIVE (NEGATIVE); INFLUENZA A NAA NEGATIVE (NEGATIVE); INFLUENZA B NAA NEGATIVE (NEGATIVE)
[2021-04-20] MEDS ORDERED: Lactated Ringers 1,000 ML IV SCH (23:45)
[2021-04-20] MEDS ORDERED: Albuterol/Ipratropium 3.0-0.5 MG/3 ML Neb Soln NEB PRN (23:47)
[2021-04-20] MEDS ORDERED: Acetaminophen 325 MG Tab PO PRN (23:47)
[2021-04-20] MEDS ORDERED: Ondansetron 4 MG/2 ML SDV IVPUSH PRN (23:47)
[2021-04-21] MEDS: Sodium Chloride 0.9% 1,000 ML IV ONE (01:09)
[2021-04-21] MEDS: Pantoprazole 40 MG in Sodium Chloride 0.9% 10 ML IVPUSH SCH ×2 (01:09→09:19)
[2021-04-21] MEDS ORDERED: Sodium Chloride 0.9% 1,000 ML IV ONE ×2 (01:33→02:15)
[2021-04-21] MEDS ORDERED: Glucagon,Human Recombinant 1 MG Vial IM PRN (08:45)
[2021-04-21] MEDS ORDERED: 50% Dextrose in Water 50 ML Syringe IVPUSH PRN (08:45)
[2021-04-21] MEDS ORDERED: metFORMIN 500 MG Tab PO SCH (09:00)
[2021-04-21] MEDS ORDERED: Diltiazem 180 MG Cap.CD PO SCH (09:00)
[2021-04-21 09:03] LABS: CARBON DIOXIDE,CO2 25.1 mmol/L (21.0-32.0)
[2021-04-21] MEDS ORDERED: Levofloxacin/Dextrose 5%-Water 750 MG in Premix Bag 1 BAG IV SCH (11:15)
[2021-04-21] MEDS ORDERED: Insulin Aspart 100 Units/ML 3 ML Pen SUBCUT SCH (11:30)
[2021-04-21] MEDS ORDERED: metroNIDAZOLE/Normal Saline 500 MG in Premix Bag 1 BAG IV SCH (12:00)
[2021-04-21 14:10] VITALS: PULSE 72
[2021-04-21] MEDS ORDERED: Pantoprazole 80 MG in Sodium Chloride 0.9% 100 ML IV ONE (14:30)
[2021-04-21 16:26] VITALS: BP 110/68
[2021-04-21] MEDS ORDERED: Ezetimibe 10 MG Tab PO SCH (21:00)
[2021-04-22] MEDS ORDERED: Levothyroxine 112 MCG Tab PO SCH (07:30)
== END 2021-04-21 15:30 | DRG 813 ==
LOC: MW.ED 19:40 → MW.MS 22:48
PROVIDERS: ADMIT Student in an Organized Health Care Education/Training Program; ATTEND Student in an Organized Health Care Education/Training Program
PROC: 30233K1 Transfusion of Nonautologous Frozen Plasma into Peripheral Vein, Percutaneous Approach (ICD-10-PCS; 2021-04-20)
PROC: 30233N1 Transfusion of Nonautologous Red Blood Cells into Peripheral Vein, Percutaneous Approach (ICD-10-PCS; principal; 2021-04-21)
DX: K57.91 Diverticulosis of intestine, part unspecified, without perforation or abscess with bleeding (principal); D68.32 Hemorrhagic disorder due to extrinsic circulating anticoagulants; K57.33 Diverticulitis of large intestine without perforation or abscess with bleeding; K62.5 Hemorrhage of anus and rectum; D50.0 Iron deficiency anemia secondary to blood loss (chronic); N17.9 Acute kidney failure, unspecified; I47.1 Supraventricular tachycardia; D62 Acute posthemorrhagic anemia; T45.515A Adverse effect of anticoagulants, initial encounter; E03.9 Hypothyroidism, unspecified; Z20.822 Contact with and (suspected) exposure to COVID-19; I48.91 Unspecified atrial fibrillation; E78.00 Pure hypercholesterolemia, unspecified; M19.90 Unspecified osteoarthritis, unspecified site; E66.9 Obesity, unspecified; G47.30 Sleep apnea, unspecified; Z96.642 Presence of left artificial hip joint; Z96.652 Presence of left artificial knee joint; I12.9 Hypertensive chronic kidney disease with stage 1 through stage 4 chronic kidney disease, or unspecified chronic kidney disease; N18.30 Chronic kidney disease, stage 3 unspecified; Z86.16 Personal history of COVID-19; Z90.710 Acquired absence of both cervix and uterus; Z79.899 Other long term (current) drug therapy; Z68.38 Body mass index [BMI] 38.0-38.9, adult; Z97.3 Presence of spectacles and contact lenses; Z79.01 Long term (current) use of anticoagulants; Z79.890 Hormone replacement therapy
CPT/HCPCS: 0240U; 36415; 80048; 80053; 81003; 82947; 83690; 85025; 85610; 85730; 36430; 96374; 99285-25; A9270-GY; C9113; J1956; J3430; J3490; J7030; J7120; P9016; P9017

== ENCOUNTER 2023-08-26 16:32 | Emergency (ER) | payer MEDICARE, OTHER ==
[2023-08-26 17:02] LABS: APPEARANCE,URINE SLT CLOUDY; BILIRUBIN,URINE NEGATIVE (NEGATIVE); COLOR,URINE YELLOW; GLUCOSE,URINE NEGATIVE (NEGATIVE); KETONES,URINE NEGATIVE (NEGATIVE); LEUKOCYTE ESTERASE,URINE LARGE (NEGATIVE); NITRITE,URINE POSITIVE (NEGATIVE); OCCULT BLOOD,URINE MODERATE (NEGATIVE); PROTEIN,URINE 30 mg/dL (NEGATIVE); UROBILINOGEN,URINE 0.2 EU/dL (<2.0)
[2023-08-26 17:05] VITALS: BP 151/85; PULSE 85
[2023-08-26 17:39] LABS: BACTERIA,URINE 2+ (NEGATIVE); EPITHELIAL CELLS,URINE FEW (NONE-FEW); WBC,URINE 20-30 (0-5/HPF)
[2023-08-26] MEDS: Phenazopyridine 200 MG Tab PO ONE (17:47)
[2023-08-26] MEDS: cefTRIAXone 1 GM Vial IM ONE (17:47)
[2023-08-26] MEDS: Lidocaine 1% PF 2 ML SDV INJECT ONE (17:48)
== END 2023-08-26 18:23 | disposition home or self-care (01) ==
LOC: MW.ED 16:32
DX: N39.0 Urinary tract infection, site not specified (principal); I12.9 Hypertensive chronic kidney disease with stage 1 through stage 4 chronic kidney disease, or unspecified chronic kidney disease; N18.30 Chronic kidney disease, stage 3 unspecified; E03.9 Hypothyroidism, unspecified; E66.9 Obesity, unspecified; Z68.41 Body mass index [BMI] 40.0-44.9, adult; Z90.710 Acquired absence of both cervix and uterus; Z88.1 Allergy status to other antibiotic agents; Z88.8 Allergy status to other drugs, medicaments and biological substances; Z79.899 Other long term (current) drug therapy; Z75.8 Other problems related to medical facilities and other health care
CPT/HCPCS: 81001; 81003; 87086; 96372; 99283; A9270; J0696; J3490

== ENCOUNTER 2024-01-23 16:09 | Emergency (ER) | payer MEDICARE, OTHER ==
[2024-01-23] MEDS ORDERED: Sodium Chloride 0.9% 10 ML Syringe FLUSH PRN (16:33)
[2024-01-23] MEDS ORDERED: Sodium Chloride 0.9% 2.5 ML Syringe FLUSH PRN (16:33)
[2024-01-23 17:24] LABS: BASOPHILS ABSOLUTE AUTO 0.03 K/uL (0.00-0.20); BASOPHILS PERCENT AUTO 0.4 % (0.0-1.0); EOSINOPHILS PERCENT AUTO 2.8 % (0.0-6.0); HEMATOCRIT 45.9 % (37.0-47.0); HEMOGLOBIN 15.1 g/dL (12.0-16.0); IMMATURE GRAN ABSOLUTE AUTO 0.02 K/uL (0.00-0.05); IMMATURE GRAN PERCENT AUTO 0.3 % (0.0-0.4); LYMPHOCYTES ABSOLUTE AUTO 1.89 K/uL (1.00-4.80); LYMPHOCYTES PERCENT AUTO 26.4 % (24.0-44.0); MEAN CORPUSCULAR HEMOGLOBIN 30.6 pg (28.0-32.0); MEAN CORPUSCULAR HGB CONC 32.9 g/dL (32.0-36.0); MEAN CORPUSCULAR VOLUME 93.1 fL (83.0-99.0); MEAN PLATELET VOLUME 9.4 fL (9.4-12.3); MONOCYTES ABSOLUTE AUTO 0.96 K/uL (0.00-0.80); MONOCYTES PERCENT AUTO 13.4 % (0.0-8.0); NEUTROPHILS ABSOLUTE AUTO 4.06 K/uL (1.80-7.70); NEUTROPHILS PERCENT AUTO 56.7 % (41.0-71.0); PLATELET COUNT,PLT 267 K/uL (150-400); RED BLOOD CELL COUNT 4.93 M/uL (4.10-5.30); WHITE BLOOD CELL COUNT,WBC 7.16 K/uL (3.9-11.3)
[2024-01-23 17:37] LABS: INR 1.06 (0.86-1.11)
[2024-01-23] MEDS: Diltiazem 25 MG/5 ML SDV IVPUSH ONE (17:49)
[2024-01-23] MEDS: Diltiazem 100 MG in Sodium Chloride 0.9% 100 ML IV SCH (17:55)
[2024-01-23 18:03] LABS: A/G RATIO 0.9 (0.9-1.6); ALBUMIN 3.7 g/dL (3.4-5.0); BILIRUBIN TOTAL 0.4 mg/dL (0.2-1.0); CALCIUM 9.7 mg/dL (8.5-10.1); CARBON DIOXIDE,CO2 26.2 mmol/L (21.0-32.0); CREATININE 1.2 mg/dL (0.6-1.0); POTASSIUM,K 4.6 mmol/L (3.5-5.1); PROTEIN TOTAL,TP 7.6 g/dL (6.4-8.2); TSH ULTRASENSITIVE 2.36 uIU/mL (0.36-3.74)
[2024-01-23 18:59] LABS: APPEARANCE,URINE CLEAR; BILIRUBIN,URINE NEGATIVE (NEGATIVE); COLOR,URINE YELLOW; GLUCOSE,URINE NEGATIVE (NEGATIVE); KETONES,URINE NEGATIVE (NEGATIVE); LEUKOCYTE ESTERASE,URINE NEGATIVE (NEGATIVE); NITRITE,URINE NEGATIVE (NEGATIVE); OCCULT BLOOD,URINE TRACE-INTACT (NEGATIVE); PROTEIN,URINE NEGATIVE (NEGATIVE); UROBILINOGEN,URINE 0.2 EU/dL (<2.0)
[2024-01-23 19:06] LABS: BACTERIA,URINE FEW (NEGATIVE); EPITHELIAL CELLS,URINE RARE (NONE-FEW); RBC,URINE 0-2 (0-2/HPF); WBC,URINE NONE SEEN (0-5/HPF)
[2024-01-23] MEDS: Aspirin 81 MG Tab.Chew PO ONE (20:17)
[2024-01-23 20:26] VITALS: BP 156/108; PULSE 114
== END 2024-01-23 21:13 ==
LOC: MW.ED 16:09
DX: I11.0 Hypertensive heart disease with heart failure (principal); I50.9 Heart failure, unspecified; I48.91 Unspecified atrial fibrillation; R79.89 Other specified abnormal findings of blood chemistry; E78.00 Pure hypercholesterolemia, unspecified; E03.9 Hypothyroidism, unspecified; E66.9 Obesity, unspecified; Z68.39 Body mass index [BMI] 39.0-39.9, adult; Z90.710 Acquired absence of both cervix and uterus; Z79.899 Other long term (current) drug therapy; Z79.890 Hormone replacement therapy; Z88.5 Allergy status to narcotic agent; Z88.8 Allergy status to other drugs, medicaments and biological substances
CPT/HCPCS: 36415; 71045; 80053; 81001; 83880; 84443; 84484; 85025; 85610; 93005; 96365; 96366; 99285; A9270; J3490; 93010

== ENCOUNTER 2024-06-16 22:00 | Emergency (ER) | payer MEDICARE, OTHER ==
[2024-06-16] MEDS ORDERED: Sodium Chloride 0.9% 20 ML SDV IV PRN (22:08)
[2024-06-16] MEDS ORDERED: Sodium Chloride 0.9% 2.5 ML Syringe FLUSH PRN (22:08)
[2024-06-16] MEDS ORDERED: Sodium Chloride 0.9% 10 ML Syringe FLUSH PRN (22:08)
[2024-06-16] MEDS: Diltiazem 25 MG/5 ML SDV IVPUSH ONE ×2 (22:21→22:38)
[2024-06-16 22:24] LABS: BASOPHILS ABSOLUTE AUTO 0.04 K/uL (0.00-0.20); BASOPHILS PERCENT AUTO 0.5 % (0.0-1.0); EOSINOPHILS ABSOLUTE AUTO 0.27 K/uL (0.00-0.45); EOSINOPHILS PERCENT AUTO 3.5 % (0.0-6.0); HEMOGLOBIN 14.5 g/dL (12.0-16.0); IMMATURE GRAN ABSOLUTE AUTO 0.01 K/uL (0.00-0.05); IMMATURE GRAN PERCENT AUTO 0.1 % (0.0-0.4); LYMPHOCYTES ABSOLUTE AUTO 1.86 K/uL (1.00-4.80); LYMPHOCYTES PERCENT AUTO 24.1 % (24.0-44.0); MEAN CORPUSCULAR HEMOGLOBIN 31.9 pg (28.0-32.0); MEAN CORPUSCULAR VOLUME 96.7 fL (83.0-99.0); MEAN PLATELET VOLUME 9.6 fL (9.4-12.3); MONOCYTES ABSOLUTE AUTO 0.59 K/uL (0.00-0.80); MONOCYTES PERCENT AUTO 7.7 % (0.0-8.0); NEUTROPHILS ABSOLUTE AUTO 4.94 K/uL (1.80-7.70); NEUTROPHILS PERCENT AUTO 64.1 % (41.0-71.0); PLATELET COUNT,PLT 235 K/uL (150-400); RED BLOOD CELL COUNT 4.55 M/uL (4.10-5.30); WHITE BLOOD CELL COUNT,WBC 7.71 K/uL (3.9-11.3)
[2024-06-16 22:37] LABS: INR 3.22 (0.86-1.11); PTT,PARTIAL THROMBOPLSTIN TIME 40.7 SEC (23.9-30.7)
[2024-06-16] MEDS: Diltiazem IR 30 MG Tab PO ONE (22:52)
[2024-06-16 22:59] LABS: ASPARTATE AMNIOTRANSFERASE,AST 19 IU/L (15-37); CHLORIDE,CL 103 mmol/L (98-107); CREATININE 1.7 mg/dL (0.6-1.0); EST CRCL DRUG DOSING (CG) 27.71 mL/min; POTASSIUM,K 4.3 mmol/L (3.5-5.1); PROTEIN TOTAL,TP 7.6 g/dL (6.4-8.2)
[2024-06-16 23:19] LABS: A/G RATIO 1.2 (0.9-1.6); ALANINE AMINOTRANSFERASE,ALT 31 IU/L (14-63); ALBUMIN 4.1 g/dL (3.4-5.0); ALKALINE PHOSPHATASE 117 U/L (46-116); BILIRUBIN TOTAL 0.7 mg/dL (0.2-1.0); BLOOD UREA NITROGEN,BUN 30 mg/dL (7.0-18.0); CALCIUM 9.2 mg/dL (8.5-10.1); CARBON DIOXIDE,CO2 23.2 mmol/L (21.0-32.0); GLUCOSE RANDOM 190 mg/dL (74-106); PRO B-TYPE NATRIUR PEPT,BNPPRO 1036 pg/mL (0-125); SODIUM,NA 139 mmol/L (136-145)
[2024-06-16 23:21] LABS: ESTIMATED GFR 32 mL/min (>60)
[2024-06-17 01:28] VITALS: BP 137/91; PULSE 84
== END 2024-06-17 01:15 | disposition home or self-care (01) ==
LOC: MW.ED 22:00
DX: I48.91 Unspecified atrial fibrillation (principal); E03.9 Hypothyroidism, unspecified; I10 Essential (primary) hypertension; E78.00 Pure hypercholesterolemia, unspecified; Z88.6 Allergy status to analgesic agent; Z88.8 Allergy status to other drugs, medicaments and biological substances; Z79.890 Hormone replacement therapy; Z79.01 Long term (current) use of anticoagulants; Z79.899 Other long term (current) drug therapy; Z90.710 Acquired absence of both cervix and uterus
CPT/HCPCS: 36415; 71045; 80053; 83880; 84443; 84484; 85025; 85610; 85730; 93005; 96374; 99285; A9270; J3490; 93010; 99284